=== PATIENT | male | born 1945 | race Native Hawaiian/Other Pacific Islander ===

== ENCOUNTER 2016-10-11 09:13 | Outpatient (CLI) | payer OTHER ==
[~2016-10-11 09:13] MED LIST: AZEL137S; CEFD300C2 PO; CEFTIN250 MG OR; COMBIVENT RESPIMAT; FLUT0.05 NAS; FURO20TA67 PO; GABA300C2 PO; GLUCOPHAGE1000 MG PO; JANUVIA100 MG PO; KLOR-CON 1010 MEQ OR; LORA10TA3 PO; LORTAB1 TAB PO; LOSA50TA PO; METF100038 OR; METO50TA27 PO; PLAVIX75 MG OR; SPIRIVA IN; TRIM800T12 PO; ZOCOR80 MG OR
== END 2016-10-11 10:16 | disposition home or self-care (01) ==
LOC: LAB 09:13
DX: L03.115 Cellulitis of right lower limb (principal)
CPT/HCPCS: 87070; 87205

== ENCOUNTER 2017-07-24 08:23 | Outpatient (CLI) | payer OTHER ==
[2017-07-24 09:08] LABS: POTASSIUM 4.8 mmol/L (3.6-5.2)
[2017-07-24 09:24] LABS: PLATELET COUNT 175 K/uL (142-355)
== END 2017-07-24 18:17 | disposition home or self-care (01) ==
LOC: LABW 08:23
PROVIDERS: Physician Assistant
DX: I12.9 Hypertensive chronic kidney disease with stage 1 through stage 4 chronic kidney disease, or unspecified chronic kidney disease (principal); N18.2 Chronic kidney disease, stage 2 (mild); E11.9 Type 2 diabetes mellitus without complications; R35.1 Nocturia
CPT/HCPCS: 36415; 80053; 80061; 83036; 83735; 84153; 84439; 84443; 85027

== ENCOUNTER 2017-08-06 11:14 | Outpatient (CLI) | payer OTHER | END 2017-08-06 22:05 | disposition home or self-care (01) | LOC: RAD 11:14 | DX: R60.0 Localized edema (principal); R06.02 Shortness of breath ==

== ENCOUNTER 2018-01-29 13:59 | Outpatient (CLI) | payer OTHER | END 2018-01-29 20:59 | disposition home or self-care (01) | LOC: LAB 13:59 | DX: R30.0 Dysuria (principal) | CPT/HCPCS: 87077; 87086; 87088; 87185; 87186 ==

== ENCOUNTER 2018-08-02 08:17 | Outpatient (CLI) | payer OTHER ==
[2018-08-02 08:32] LABS: PLATELET COUNT 186 K/uL (142-355)
[2018-08-02 09:18] LABS: POTASSIUM 4.7 mmol/L (3.6-5.2)
== END 2018-08-02 19:20 | disposition home or self-care (01) ==
LOC: LABW 08:17
PROVIDERS: Physician Assistant
DX: I10 Essential (primary) hypertension (principal); E11.43 Type 2 diabetes mellitus with diabetic autonomic (poly)neuropathy; N52.1 Erectile dysfunction due to diseases classified elsewhere; J44.9 Chronic obstructive pulmonary disease, unspecified; E55.9 Vitamin D deficiency, unspecified; E53.8 Deficiency of other specified B group vitamins
CPT/HCPCS: 36415; 80053; 80061; 82306; 82607; 83036; 84154; 84439; 84443; 85027

== ENCOUNTER 2018-12-02 08:54 | Outpatient (CLI) | payer OTHER ==
[2018-12-02 09:35] LABS: PLATELET COUNT 210 K/uL (142-355)
[2018-12-02 09:58] LABS: POTASSIUM 4.9 mmol/L (3.6-5.2)
== END 2018-12-02 20:32 | disposition home or self-care (01) ==
LOC: LABW 08:54
PROVIDERS: Internal Medicine
DX: Z00.00 Encounter for general adult medical examination without abnormal findings (principal); E11.43 Type 2 diabetes mellitus with diabetic autonomic (poly)neuropathy; J44.9 Chronic obstructive pulmonary disease, unspecified; I10 Essential (primary) hypertension; Z12.5 Encounter for screening for malignant neoplasm of prostate; N40.0 Benign prostatic hyperplasia without lower urinary tract symptoms
CPT/HCPCS: 36415; 80053; 80061; 81000; 83036; 84153; 84443; 85027

== ENCOUNTER 2019-04-17 08:37 | Outpatient (CLI) | payer OTHER ==
[2019-04-17 09:04] LABS: PLATELET COUNT 175 K/uL (142-355)
[2019-04-17 09:26] LABS: POTASSIUM 4.5 mmol/L (3.6-5.2)
== END 2019-04-17 19:43 | disposition home or self-care (01) ==
LOC: LABW 08:37
PROVIDERS: Internal Medicine
DX: E11.9 Type 2 diabetes mellitus without complications (principal)
CPT/HCPCS: 36415; 80053; 80061; 81000; 82043; 82570; 83036; 84439; 84443; 85027

== ENCOUNTER 2019-05-06 09:13 | Outpatient (CLI) | payer OTHER | END 2019-05-06 19:31 | disposition home or self-care (01) | LOC: RAD 09:13 | DX: J44.1 Chronic obstructive pulmonary disease with (acute) exacerbation (principal) ==

== ENCOUNTER 2019-07-15 12:05 | Outpatient (CLI) | payer OTHER | END 2019-07-15 22:25 | disposition home or self-care (01) | LOC: US 12:05 | DX: M79.89 Other specified soft tissue disorders (principal) ==

== ENCOUNTER 2019-12-02 09:10 | Outpatient (CLI) | payer OTHER ==
[2019-12-02 10:01] LABS: PLATELET COUNT 174 K/uL (142-355)
== END 2019-12-02 19:28 | disposition home or self-care (01) ==
LOC: LABW 09:10
PROVIDERS: Internal Medicine
DX: Z00.00 Encounter for general adult medical examination without abnormal findings (principal); E11.9 Type 2 diabetes mellitus without complications; Z12.5 Encounter for screening for malignant neoplasm of prostate; N40.0 Benign prostatic hyperplasia without lower urinary tract symptoms
CPT/HCPCS: 36415; 80053; 80061; 81000; 82043; 82570; 83036; 84153; 84443; 85027

== ENCOUNTER 2020-02-16 08:52 | Outpatient (CLI) | payer OTHER | END 2020-02-16 21:25 | disposition home or self-care (01) | LOC: US 08:52 | PROVIDERS: ATTEND Obstetrics & Gynecology | DX: R10.84 Generalized abdominal pain (principal) ==

== ENCOUNTER 2020-03-12 12:08 | Outpatient (CLI) | payer OTHER | END 2020-03-12 19:03 | disposition home or self-care (01) | LOC: NM 12:08 | PROVIDERS: ATTEND Internal Medicine | DX: K82.8 Other specified diseases of gallbladder (principal) | CPT/HCPCS: A9537 ==

== ENCOUNTER 2020-03-17 10:34 | Outpatient (CLI) | payer OTHER | END 2020-03-17 19:38 | disposition home or self-care (01) | LOC: LABW 10:34 | PROVIDERS: ATTEND Internal Medicine Gastroenterology | DX: R10.32 Left lower quadrant pain (principal); R10.31 Right lower quadrant pain | CPT/HCPCS: 87338 ==

== ENCOUNTER 2020-03-23 07:45 | Outpatient (CLI) | payer OTHER | END 2020-03-23 23:12 | disposition home or self-care (01) | LOC: CT 07:45 | PROVIDERS: ATTEND Internal Medicine Gastroenterology | DX: R10.32 Left lower quadrant pain (principal); R10.31 Right lower quadrant pain | CPT/HCPCS: 36415; 82565; 84520; Q9963 ==

== ENCOUNTER 2020-06-14 10:07 | Outpatient (CLI) | payer OTHER | END 2020-06-14 19:12 | disposition home or self-care (01) | LOC: RAD 10:07 | PROVIDERS: ATTEND Internal Medicine | DX: J44.1 Chronic obstructive pulmonary disease with (acute) exacerbation (principal) ==

== ENCOUNTER 2020-10-26 10:33 | Outpatient (CLI) | payer OTHER ==
[2020-10-26 11:17] LABS: PLATELET COUNT 181 K/uL (142-355)
[2020-10-26 11:31] LABS: POTASSIUM 4.9 mmol/L (3.6-5.2)
== END 2020-10-26 21:47 | disposition home or self-care (01) ==
LOC: LABW 10:33
PROVIDERS: ATTEND Internal Medicine
DX: J44.1 Chronic obstructive pulmonary disease with (acute) exacerbation (principal); R73.9 Hyperglycemia, unspecified; Z79.899 Other long term (current) drug therapy
CPT/HCPCS: 36415; 80053; 81000; 83036; 83880; 84439; 84443; 85027; 85379

== ENCOUNTER 2020-11-01 14:32 | Outpatient (CLI) | payer OTHER | END 2020-11-01 21:18 | disposition home or self-care (01) | LOC: RAD 14:32 | PROVIDERS: ATTEND Internal Medicine | DX: J18.9 Pneumonia, unspecified organism (principal) ==

== ENCOUNTER 2021-02-24 09:12 | Outpatient (CLI) | payer OTHER ==
[2021-02-24 10:02] LABS: PARTIAL THROMBOPLASTIN TIME 23.4 SECONDS (24.5-33.6)
== END 2021-02-24 19:22 | disposition home or self-care (01) ==
LOC: LABW 09:12
PROVIDERS: ATTEND Internal Medicine
DX: R91.8 Other nonspecific abnormal finding of lung field (principal); R79.1 Abnormal coagulation profile
CPT/HCPCS: 36415; 83735; 85610; 85730

== ENCOUNTER 2021-03-07 13:51 | Outpatient (CLI) | payer OTHER ==
[2021-03-07 14:23] LABS: POTASSIUM 5.1 mmol/L (3.6-5.2)
== END 2021-03-07 18:55 | disposition home or self-care (01) ==
LOC: LABW 13:51
PROVIDERS: ATTEND Internal Medicine Interventional Cardiology
DX: R60.0 Localized edema (principal); Z09 Encounter for follow-up examination after completed treatment for conditions other than malignant neoplasm
CPT/HCPCS: 36415; 80048

== ENCOUNTER 2021-05-27 09:16 | Outpatient (CLI) | payer OTHER ==
[2021-05-27 10:02] LABS: POTASSIUM 5.2 mmol/L (3.6-5.2)
== END 2021-05-27 19:52 | disposition home or self-care (01) ==
LOC: LABW 09:16
PROVIDERS: ATTEND Internal Medicine
DX: I50.9 Heart failure, unspecified (principal)
CPT/HCPCS: 36415; 80048; 83735

== ENCOUNTER 2021-07-07 07:58 | Outpatient (CLI) | payer OTHER ==
[2021-07-07 09:00] LABS: PLATELET COUNT 179 K/uL (142-355)
[2021-07-07 09:11] LABS: POTASSIUM 4.5 mmol/L (3.6-5.2)
== END 2021-07-07 19:25 | disposition home or self-care (01) ==
LOC: US 07:58 → LAB 07:58 → US 08:00
PROVIDERS: ATTEND Internal Medicine
DX: N18.32 Chronic kidney disease, stage 3b (principal)
CPT/HCPCS: 36415; 80053; 81000; 82043; 82330; 82570; 83735; 83970; 84100; 84156; 85027

== ENCOUNTER 2021-07-31 03:41 | Emergency (ER) | payer OTHER ==
[~2021-07-31] VITALS: Ht 175.3 cm; Wt 93.0 kg
[2021-07-31 04:15] LABS: PLATELET COUNT 272 K/uL (142-355)
[2021-07-31 04:26] LABS: POTASSIUM 4.7 mmol/L (3.6-5.2)
[2021-07-31 04:32] LABS: PARTIAL THROMBOPLASTIN TIME 24.4 SECONDS (24.5-33.6)
[2021-07-31 06:55] VITALS: BP 108/54; TEMP 97.5
== END 2021-07-31 06:55 | disposition short-term general hospital (02) ==
LOC: ED 03:41
PROVIDERS: Family Medicine
DX: I25.10 Atherosclerotic heart disease of native coronary artery without angina pectoris (principal); I10 Essential (primary) hypertension; J18.9 Pneumonia, unspecified organism; I25.2 Old myocardial infarction; Z87.891 Personal history of nicotine dependence; Z11.52 Encounter for screening for COVID-19; Z95.810 Presence of automatic (implantable) cardiac defibrillator; Z99.81 Dependence on supplemental oxygen; Z79.01 Long term (current) use of anticoagulants; Z51.81 Encounter for therapeutic drug level monitoring
CPT/HCPCS: 36415; 80053; 82550; 84484; 85027; 85610; 85730; 87635; 93005; 96365; 96375; 96376; 99284; J0696; J1885; J3490; U0003

== ENCOUNTER 2021-10-06 08:08 | Outpatient (CLI) | payer OTHER ==
[2021-10-06 08:36] LABS: POTASSIUM 5.4 mmol/L (3.6-5.2)
== END 2021-10-06 20:52 | disposition home or self-care (01) ==
LOC: LABW 08:08
PROVIDERS: ATTEND Internal Medicine
DX: R25.2 Cramp and spasm (principal)
CPT/HCPCS: 36415; 80053